=== PATIENT | female | born 1960 | race Caucasian/White ===

== ENCOUNTER 2019-02-05 23:12 | Emergency (ER) | payer SELFPAY ==
[~2019-02-05] VITALS: Wt 80.0 kg
[2019-02-05 23:25] VITALS: BP 126/65; PULSE 71; RESP 19
--- NOTE | 2019-02-05 23:47 | ERD ---
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 There was a diabetic insulin needle left behind that she stuck her left 5th finger just prior to arrival. The patient states that she thoroughly washed the area. Her vaccinations are up-to-date. Patient has no complaints currently. ROS All systems reviewed and are negative except as per history of present illness. Allergies Allergies: Coded Allergies: No Known Allergy (Unverified , 02/05/19) FmHx Family History: No diabetes Physical Exam Vitals Vital Signs Date Temp Pulse Resp B/P (MAP) Pulse Ox O2 O2 Flow FiO2 Time Delivery Rate 02/05/19 98.7 71 19 126/65 100 23:25 (85) Physical Exam General: Well developed, well nourished, no acute distress Head: Normocephalic, atraumatic. Eyes: EOM intact ENT: Moist mucous membranes Neck: Full ROM Respiratory: No respiratory distress Cardiovascular: Well perfused distally Abdominal: Nondistended : Deferred MSK: The patient's left hand and fingers were examined, no evidence of puncture wound, bleeding. Good capillary refill. No retained foreign body. Neurologic: Alert and oriented, moving all extremities, normal speech, steady gait Skin: No rash Psych: Normal mood Result Diagram: 02/05/19 6136 Results 24 hrs Laboratory Tests Test 02/05/19 23:29 White Blood Count 8.2 10^3/ul Red Blood Count 4.92 10^6/ul Hemoglobin 13.6 g/dl Hematocrit 42.1 % Mean Corpuscular Volume 85.6 fl Mean Corpuscular Hemoglobin 27.6 pg Mean Corpuscular Hemoglobin Concent 32.3 g/dl Red Cell Distribution Width 13.3 % Platelet Count 196 10^3/UL Mean Platelet Volume 12.7 fl Immature Granulocytes % 0.400 % Neutrophils % 55.3 % Lymphocytes % 34.9 % Monocytes % 7.6 % Eosinophils % 1.2 % Basophils % 0.6 % Nucleated Red Blood Cells % 0.0 /100WBC Immature Granulocytes # 0.030 10^3/ul Neutrophils # 4.5 10^3/ul Lymphocytes # 2.9 10^3/ul Monocytes # 0.6 10^3/ul Eosinophils # 0.1 10^3/ul Basophils # 0.1 10^3/ul Nucleated Red Blood Cells # 0.0 10^3/ul Procedures/MDM The patient suffered a needlestick injury just prior to arrival. She is vaccinated. The source patient was evaluated. The patient during this hospitalization had negative hepatitis, HIV screening. The patient has no significant risk factors that would require postexposure prophylaxis medication initiation. Reassurance provided. Return precautions discussed. The patient had basic blood work per protocol drawn. The patient will follow up with [facility]. Departure Diagnosis: Primary Impression: Needlestick injury accident Condition: Good Patient Instructions: Standard Precautions: [place] and Other [place] Referrals: EMPLOYEE [facility] EMPL[facility]EE (PCP) Additional Instructions: Llame al doctor nomshahana vidal (Referral Sources) MAANA y juan julian SANDHYA PARA DENTRO DE JULIAN SEMANA. Dgale a la secretaria que nosotros le instruimos hacer esta sandhya.Avise o llame si art condicin se empeora antes de la sandhya. VIVIAN SWIFT MD February 05, 2019 23:47
== END 2019-02-06 02:38 | disposition home or self-care (01) ==
LOC: E/R 23:12
DX: S61.237A Puncture wound without foreign body of left little finger without damage to nail, initial encounter (principal); W46.0XXA Contact with hypodermic needle, initial encounter; Y92.89 Other specified places as the place of occurrence of the external cause
CPT/HCPCS: 80076; 85025; 86703; 86706; 86803; 87340; 99283